=== PATIENT | female | born 1945 | race Two or more races ===

== ENCOUNTER 2016-09-01 11:34 | Emergency (ER) | payer SELFPAY ==
--- NOTE | 2016-09-01 12:42 | RAD ---
HISTORY: Fall on outstretched hand. Laceration. Question foreign body. Initial encounter. COMPARISON: None TECHNIQUE: 4 views of the left hand FINDINGS: Bones: No fracture or dislocation. A tiny radiopaque fragment is identified projecting anterior to the lunate on lateral film. Findings could relate to a tiny fracture fragment, soft tissue calcification or possibly radiopaque foreign body. This is fairly deep within the soft tissues, approximately a centimeter from the skin surface. Joints: Mild generalized joint space loss is present compatible with osteoarthritis. Soft tissue: Normal. IMPRESSION: Possible radiopaque body as above. Given the depth, this is thought to be less likely a radiopaque foreign body and more likely soft tissue calcification or other entity. Correlation with exam and mechanism of injury would be recommended.
[2016-09-01] MEDS ORDERED: DIPHTH,PERTUSS(ACELL),TET VAC 0.5 ML VIAL IM V ONE (13:32)
== END 2016-09-01 14:06 | disposition home or self-care (01) ==
LOC: ED 11:34
DX: S61.412A Laceration without foreign body of left hand, initial encounter (principal); I10 Essential (primary) hypertension; E11.9 Type 2 diabetes mellitus without complications; Z79.84 Long term (current) use of oral hypoglycemic drugs; Z23 Encounter for immunization; W17.89XA Other fall from one level to another, initial encounter; Y92.810 Car as the place of occurrence of the external cause